=== PATIENT | male | born 1965 | race Caucasian/White ===

== ENCOUNTER → 2024-04-15 13:07 | Outpatient (REF) | payer OTHER, SELFPAY | LOC: HWRAD 13:07 | PROVIDERS: ATTENDING PHYSICIAN Family Medicine | DX: S39.012A Strain of muscle, fascia and tendon of lower back, initial encounter (principal); S16.1XXA Strain of muscle, fascia and tendon at neck level, initial encounter | CPT/HCPCS: 72050; 72110; 72170 ==